=== PATIENT | male | born 1975 | race Caucasian/White ===

== ENCOUNTER 2025-03-05 19:14 | Emergency (ER) | payer BC, SELFPAY ==
[2025-03-05 19:30] VITALS: BP 159/78; PULSE 93; RESP 18; TEMP 35.9; O2SAT 99
--- NOTE | 2025-03-05 19:41 | ED.SKABFB ---
HPI - Skin/Abscess/Foreign Bdy General Chief complaint: Skin/Abscess/Foreign Body Stated complaint: Skin Time Seen by Provider: 03/05/25 19:30 Source: patient and RN notes reviewed Mode of arrival: ambulatory Limitations: no limitations History of Present Illness HPI narrative: 49-year-old male presents Express Care complaining of rash the last week. Patient believes he a poison neeraj on his legs. Since then the rashes gotten worse and spread to his arms and throughout his trunk. Patient reports the rash is very pruritic. Patient denies any pain, fevers, body aches, chills, nausea vomiting every other symptoms. Patient has been using alcohol, calamine lotion, and Benadryl without relief. Patient denies any significant past medical history. Related Data Allergies Allergy/AdvReac Type Severity Reaction Status Date / Time No Known Allergies Allergy Verified 03/05/25 19:32 Review of Systems Review of Systems: CONSTITUTIONAL: Denies fever, chills, or sweats. EYES: Denies visual changes, redness, or discharge. ENT: Denies rhinorrhea, congestion, sore throat, or otalgia. CARDIOVASCULAR: Denies chest pain, palpitations, or edema. RESPIRATORY: Denies cough or dyspnea. GASTROINTESTINAL: Denies abdominal pain, nausea, vomiting, or diarrhea. GENITOURINARY: Denies dysuria or hematuria. SKIN: Positive for rash itching. MUSCULOSKELETAL: Denies back pain, joint pain, or myalgia. NEUROLOGIC: Denies headache, numbness, or weakness. PSYCHIATRIC: Denies anxiety or depression. All other systems reviewed are negative, except as documented in HPI. PMFSH Comments At the time of my signature, I reviewed and agree with the nursing past medical, surgical, social, and family history. There is no relevant family history pertinent to the patient complaint. Exam Narrative: GENERAL: This is a well-nourished, well-developed adult, in no apparent distress. They are non ill-appearing, nontoxic appearing. HEAD: normocephalic, atraumatic. EYES: Sclera clear/white. Conjunctiva normal. Vision is grossly intact. Extraocular movements intact EARS: External ears normal, Hearing grossly intact. NOSE: External nose normal THROAT: Mucous membranes moist NECK: Neck supple, CARDIOVASCULAR: Regular rate and rhythm RESPIRATORY: Respiratory rate normal, respiratory effort nonlabored, no respiratory distress SKIN: There is a large grouped macular papular erythematous pruritic rash to the left lower extremity below the knee on the lateral side of the fabian. It is ecchymotic, nontender, and warm to touch. Skin is indurated, no exudate, no area of fluctuance. There is a erythematous macular papular vesicular scattered throughout the rest of the patient's bilateral lower extremities, bilateral upper extremities, and trunk. Rashes nontender, no area of fluctuance, no induration, no exudate. NEURO: awake, alert, and oriented to person, place and time. There were no obvious focal neurologic abnormalities. EXTREMITIES: No joint tenderness, effusion, or edema noted. Course Course Emergency Course: Portions of this record may have been created with voice recognition software Level of Care: Express Care Visit Vital Signs Vital signs: Vital Signs Temperature 96.6 F L 03/05/25 19:30 Pulse Rate 93 03/05/25 19:30 Respiratory Rate 18 03/05/25 19:30 Blood Pressure 159/78 H 03/05/25 19:30 Pulse Oximetry 99 03/05/25 19:30 Oxygen Delivery Room Air 03/05/25 19:30 Temperature 96.6 F L 03/05/25 19:30 Pulse Rate 93 03/05/25 19:30 Respiratory Rate 18 03/05/25 19:30 Blood Pressure 159/78 H 03/05/25 19:30 Pulse Oximetry 99 03/05/25 19:30 Oxygen Delivery Room Air 03/05/25 19:30 Reviewed MDM - Skin/Abscess/Foreign Bdy MDM Narrative Medical decision making narrative: Appears patient has contact dermatitis could be related to poison neeraj. Will prescribe prednisone taper. Appears patient has been scratching his left lower extremity vigorously and appears he may have developed a secondary infection. Will treat with cephalexin. Discussed physical exam findings. Advised supportive measures and signs/symptoms to go to the ER. Pt is appropriate for outpt treatment and f/u. Differential Diagnosis Differential diagnosis: Likely abscess of skin or subcutaneous tissue, cellulitis, eczema and contact dermatitis Critical Care Time Critical Care Time Critical Care Time: No Discharge Plan Discharge Clinical Impression: Contact dermatitis Qualifiers: Contact dermatitis type: unspecified Contact dermatitis trigger: unspecified trigger Qualified Code(s): L25.9 - Unspecified contact dermatitis, unspecified cause Cellulitis Qualifiers: Site of cellulitis: extremity Site of cellulitis of extremity: lower extremity Laterality: left Qualified Code(s): L03.116 - Cellulitis of left lower limb Patient Disposition: Home Condition: Stable Instructions: Antibiotic Form, Contact Dermatitis (ED), Cellulitis (ED) Additional Instructions: Take cephalexin as directed. Take the prednisone as directed. Take it in the morning and take it with food. You may use calamine lotion, camphor, hydrocortisone cream, Benadryl cream as needed for itchiness symptoms. You may also take Zyrtec or Claritin as needed for allergy or itchiness symptoms. Follow-up PCP in 3-5 days. If you develop any worsening redness, swelling, discharge, fevers, breathing problems, or any other concerns please go to the ER immediately. Patient Language: Mongolian Prescriptions: New prednisone 10 mg tablet See Taper PO DIRECTED Qty: 42 0RF Taper: Prednisone Taper from 60 mg;12 days 60 mg DAILY for 2 Days and 0 Hour 50 mg DAILY for 2 Days and 0 Hour 40 mg DAILY for 2 Days and 0 Hour 30 mg DAILY for 2 Days and 0 Hour 20 mg DAILY for 2 Days and 0 Hour 10 mg DAILY for 2 Days and 0 Hour cephalexin 500 mg capsule 500 mg PO Q6H 7 Days Qty: 28 0RF Follow-up/Referrals: Sara,DO Debi [Primary Care Provider, Internal Medicine] Time of Disposition: 19:40
== END 2025-03-05 19:43 | disposition home or self-care (01) ==
PROVIDERS: PCP Internal Medicine
DX: L25.9 Unspecified contact dermatitis, unspecified cause (principal); L03.116 Cellulitis of left lower limb
CPT/HCPCS: 99203; G0463